=== PATIENT | female | born 1955 | race Caucasian/White ===

== ENCOUNTER 2016-09-04 13:49 | Emergency (ER) | payer OTHER, BC ==
[2016-09-04] MEDS ORDERED: AZITHROMYCIN 250 MG TABLET (FP) PO ONE (14:02)
--- NOTE | 2016-09-04 14:04 | PDOC ---
History of Present Illness - General History Source: Patient Exam Limitations: No Limitations - History of Present Illness Initial Comments: 09/04/16 14:04 A portion of this note was documented by scribe services under my direction. I have reviewed the details of the note, within reason, and agree with the documentation with the following case summary and management plan written by me. Patient treated in the ED. Nursing notes are reviewed and incorporated into the medical decision-making. Vital signs reviewed. Peripheral IV access obtained by the nurse, laboratory studies are drawn and sent, reviewed and interpreted by myself. Vital Signs Temp Pulse Resp BP Pulse Ox 98.2 F 75 15 130/63 97 09/04/16 13:51 09/04/16 13:51 09/04/16 13:51 09/04/16 13:51 09/04/16 13:51 61-year-old female with history of hypertension, recurrent sinusitis with prior complicated abscesses, dental removals as a consequence, frequent sinus infections, presents with right frontal and right maxillofacial sinus pain radiating to right ear. Patient reports that typically requires antibiotics given the severity of her sinusitis. Has had multiple complications including facial cellulitis and facial abscesses. Denies fevers. Reports some mild chills. Given her complicated history with sinusitis, we'll initiate azithromycin and have the patient follow up with her primary care physician. Return precautions given. Patient verbalizes understand agrees with plan I discussed the physical exam findings, ancillary test results and final diagnoses with the patient. I answered all of the patient's questions. The patient was satisfied with the care received and felt comfortable with the discharge plan and treatment plan. The patient will call their primary care physician within 24 hours to arrange follow-up and will return to the Emergency Department with any new, persistant or worsening symptoms. <Kvng Elmore - Last Filed: 09/04/16 14:04> - History of Present Illness Initial Comments: 09/04/16 14:12 The patient is a 61-year-old female with significant past medical history of hypertension, who presents to the emergency depeartment for recurrent sinusitis today. She reports prior complicated abscesses and dental removals as a consequence of her frequent sinus infections and complains of right frontal and right maxillofacial sinus pain radiating to right ear. The patient reports that she typically requires antibiotics. She reports having multiple complications including facial cellulitis and facial abscesses. Denies fevers. Reports some mild chills. She denies chest pain, dizziness, palpitations, and lightheadedness. She denies any other acute complaints. <Leana Larry - Last Filed: 09/04/16 14:18> - General Chief Complaint: Headache Stated Complaint: SINUS PAIN & HEADACHE Time Seen by Provider: 09/04/16 13:53 Past History - Past Medical History Anemia: No Asthma: No Cancer: No Cardiac Disorders: Yes (10 years angina) CVA: No COPD: No CHF: No HTN: Yes Hypercholesterolemia: Yes - Surgical History Orthopedic Surgery: Yes - Psycho/Social/Smoking Cessation Hx Anxiety: No Suicidal Ideation: No Smoking Status: Yes Smoking History: Current every day smoker Have you smoked in the past 12 months: Yes Number of Cigarettes Smoked Daily: 5 'Breaking Loose' booklet given: 03/25/12 Hx Alcohol Use: No Drug/Substance Use Hx: No Substance Use Type: None Hx Substance Use Treatment: No <Kvng Elmore - Last Filed: 09/04/16 14:04> <Leana Larry - Last Filed: 09/04/16 14:18> - Past Medical History Allergies/Adverse Reactions: Allergies Allergy/AdvReac Type Severity Reaction Status Date / Time oxycodone HCl [From Percocet] Allergy Mild Verified 07/25/16 12:04 Home Medications: Ambulatory Orders Amlodipine Besylate [Norvasc] 10 mg PO HS 03/26/12 Aspirin [Aspirin EC] 81 mg PO HS 07/25/16 Docosahexanoic Acid/Epa [Fish Oil Concentrate Softgel] 1 each PO HS 07/25/16 Pravastatin Sodium [Pravachol (Nf)] 20 mg PO HS 07/25/16 Azithromycin 250 mg PO DAILY #4 tablet 09/04/16 Fluticasone Prop 0.05% Nasal [Flonase -] 1 spray IN BID PRN 09/04/16 Guaifen/Phenyleph/Acetaminophn [Tylenol Sinus Severe Caplet] 1 each PO PRN PRN 09/04/16 Review of Systems - Review of Systems Able to Perform ROS?: Yes Comments:: 09/04/16 14:15 GENERAL/CONSTITUTIONAL: No fever or chills. No weakness. HEAD, EYES, EARS, NOSE AND THROAT:(+) sinus congestion with right facial pain radiating to right ear. No change in vision. No ear discharge. No sore throat. CARDIOVASCULAR: No chest pain or shortness of breath. RESPIRATORY: No cough, wheezing, or hemoptysis. GASTROINTESTINAL: No nausea, vomiting, diarrhea or constipation. GENITOURINARY: No dysuria, frequency, or change in urination. MUSCULOSKELETAL: No joint or muscle swelling or pain. No neck or back pain. SKIN: No rash NEUROLOGIC: No headache, vertigo, loss of consciousness, or change in strength/ sensation. ENDOCRINE: No increased thirst. No abnormal weight change. HEMATOLOGIC/LYMPHATIC: No anemia, easy bleeding, or history of blood clots. ALLERGIC/IMMUNOLOGIC: No hives or skin allergy. <Leana Larry - Last Filed: 09/04/16 14:18> *Physical Exam - Vital Signs Last Vital Signs Temp Pulse Resp BP Pulse Ox 98.2 F 75 15 130/63 97 09/04/16 13:51 09/04/16 13:51 09/04/16 13:51 09/04/16 13:51 09/04/16 13:51 - Physical Exam Comments: 09/04/16 14:16 GENERAL: Awake, alert, and fully oriented, in no acute distress HEAD: No signs of trauma EYES: PERRLA, EOMI, sclera anicteric, conjunctiva clear ENT: (+) ttp at right maxilllary and frontal sinuses. Right TM is clear. Auricles normal inspection, hearing grossly normal, nares patent, oropharynx clear without exudates. Moist mucosa NECK: Normal ROM, supple, no lymphadenopathy, JVD, or masses LUNGS: Breath sounds equal, clear to auscultation bilaterally. No wheezes, and no crackles HEART: Regular rate and rhythm, normal S1 and S2, no murmurs, rubs or gallops ABDOMEN: Soft, nontender, normoactive bowel sounds. No guarding, no rebound. No masses EXTREMITIES: Normal range of motion, no edema. No clubbing or cyanosis. No cords, erythema, or tenderness NEUROLOGICAL: Cranial nerves II-XII intact. Normal speech, normal gait. Sensation intact in upper and lower extremities. 5/5 motor strength in upper and lower extremities. No pronator drift. Finger to nose intact. Rapid alternations intact. SKIN: Warm, Dry, normal turgor, no rashes or lesions noted. <Leana Larry - Last Filed: 09/04/16 14:18> ED Treatment Course - Medications Given in the ED: ED Medications Discontinued Medications Generic Name Dose Route Start Last Admin Trade Name Jared PRN Reason Stop Dose Admin Azithromycin 500 mg 09/04/16 14:02 09/04/16 14:08 Zithromax - PO 09/04/16 14:03 500 mg ONCE ONE Administration <Leana Larry - Last Filed: 09/04/16 14:18> *DC/Admit/Observation/Transfer - Discharge Dispostion Admit: No <Kvng Elmore - Last Filed: 09/04/16 14:04> - Attestations Scribe Attestion: 09/04/16 14:18 Documentation prepared by Leana Laryr, acting as medical imaging director for Kvng Elmore MD <Leana Larry - Last Filed: 09/04/16 14:18> Diagnosis at time of Disposition: Sinusitis Qualifiers: Sinusitis location: unspecified location Chronicity: acute Recurrence: not specified as recurrent Qualified Code(s): J01.90 - Acute sinusitis, unspecified - Discharge Dispostion Disposition: HOME Condition at time of disposition: Stable - Prescriptions Prescriptions: Azithromycin 250 mg PO DAILY #4 tablet - Referrals Referrals: Damon Stephesnon MD [Primary Care Provider] - - Patient Instructions Printed Discharge Instructions: Tips to Help You Stop Smoking, DI for Sinusitis Additional Instructions: Please follow up with your doctor. Complete the antibiotics (azithromycin) as prescribed.
[2016-09-04 14:05] VITALS: BP 130/63; PULSE 75; TEMP 98.2; BMI 30.2
[2016-09-04] MEDS ORDERED: AZITHROMYCIN 250 MG TABLET (FP) ONE (14:07)
== END 2016-09-04 14:12 | disposition home or self-care (01) ==
LOC: FER 13:49
DX: J01.90 Acute sinusitis, unspecified (principal); I10 Essential (primary) hypertension; F17.210 Nicotine dependence, cigarettes, uncomplicated; E78.00 Pure hypercholesterolemia, unspecified; I20.9 Angina pectoris, unspecified
CPT/HCPCS: 99281-25

== ENCOUNTER 2016-12-27 09:58 | Emergency (ER) | payer OTHER, BC ==
[2016-12-27 10:04] VITALS: BP 143/71; PULSE 72; TEMP 98.3; BMI 30.5
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
== END 2016-12-27 11:25 | disposition home or self-care (01) ==
LOC: FER 09:58
DX: T21.12XA Burn of first degree of abdominal wall, initial encounter (principal); T59.91XA Toxic effect of unspecified gases, fumes and vapors, accidental (unintentional), initial encounter; Y92.002 Bathroom of unspecified non-institutional (private) residence as the place of occurrence of the external cause; F17.210 Nicotine dependence, cigarettes, uncomplicated; I10 Essential (primary) hypertension
CPT/HCPCS: 99281-25

== ENCOUNTER 2017-04-25 13:22 | Emergency (ER) | payer OTHER, BC ==
[2017-04-25 13:34] VITALS: BP 137/69; PULSE 72; TEMP 98.4; BMI 31.2
--- NOTE | 2017-04-25 13:40 | PDOC ---
History of Present Illness - General History Source: Patient <Tina Gallego Elis - Last Filed: 04/25/17 14:40> - General History Source: Patient (Patient presents with 1 day of sinus pain and congestion. Hx of Sinusitis s/p Full upper teeth removal surgery. ) Exam Limitations: No Limitations - History of Present Illness Timing/Duration: 24 hours Severity: moderate <Lavon Murdock - Last Filed: 04/25/17 15:15> - General Chief Complaint: Cold Symptoms Stated Complaint: SORE THROAT, EAR PAIN, RUNNY EYES Time Seen by Provider: 04/25/17 13:25 Past History - Past Medical History Anemia: No Asthma: No Cancer: No Cardiac Disorders: Yes (10 years angina) CVA: No COPD: No CHF: No HTN: Yes Hypercholesterolemia: Yes - Surgical History Orthopedic Surgery: Yes - Suicide/Smoking/Psychosocial Hx Smoking Status: Yes Smoking History: Current every day smoker Have you smoked in the past 12 months: Yes Number of Cigarettes Smoked Daily: 20 If you are a former smoker, when did you quit?: 12/27/16 Information on smoking cessation initiated: Yes 'Breaking Loose' booklet given: 12/27/16 Hx Alcohol Use: No Drug/Substance Use Hx: No Substance Use Type: None Hx Substance Use Treatment: No <LashondaTina Gillis - Last Filed: 04/25/17 14:40> - Suicide/Smoking/Psychosocial Hx Smoking Status: Yes (Pack per day) Smoking History: Current every day smoker <Lavon Murdock - Last Filed: 04/25/17 15:15> - Past Medical History Allergies/Adverse Reactions: Allergies Allergy/AdvReac Type Severity Reaction Status Date / Time oxycodone HCl [From Percocet] Allergy Mild Verified 12/27/16 09:59 Home Medications: Ambulatory Orders Amlodipine Besylate [Norvasc] 10 mg PO HS 03/26/12 Aspirin [Aspirin EC] 81 mg PO HS 07/25/16 Pravastatin Sodium 10 mg PO HS 12/27/16 Cephalexin Monohydrate [Keflex -] 500 mg PO Q8H #30 capsule 04/25/17 Fluticasone Prop 0.05% Nasal [Flonase -] 1 - 2 spray NS DAILY #1 spray.pump Sulfamethoxazole/Trimethoprim [Bactrim Ds Tablet] 1 each PO BID #14 tablet 04/25 Review of Systems - Review of Systems Constitutional: Yes: Fever HEENTM: Yes: Nose Pain, Nose Congestion Respiratory: Yes: Cough (Dry ) All Other Systems: Reviewed and Negative <Lavon Murdock - Last Filed: 04/25/17 15:15> *Physical Exam - Vital Signs Last Vital Signs Temp Pulse Resp BP Pulse Ox 98.4 F 72 16 137/69 98 04/25/17 13:23 04/25/17 13:23 04/25/17 13:23 04/25/17 13:23 04/25/17 13:23 <Tina Gallego S - Last Filed: 04/25/17 14:40> - Vital Signs Last Vital Signs Temp Pulse Resp BP Pulse Ox 98.4 F 72 16 137/69 98 04/25/17 13:23 12 13:23 04/25/17 13:23 04/25/17 13:23 04/25/17 13:23 - Physical Exam HEENT: positive: Other (Mild Throat erythema. Right sided frontal sinus pain. Right side pain with tapping to right mastoid. ) Neck: positive: Supple <Lavon Murdock - Last Filed: 04/25/17 15:15> ED Treatment Course - ADDITIONAL ORDERS Additional order review: 04/25/17 13:44 Group A Strep Rapid Antigen - Final Throat NEGATIVE FOR THE ANTIGEN OF BETA HEMOLYTIC STREP GROUP A - Medications Given in the ED: ED Medications Discontinued Medications Generic Name Dose Route Start Last Admin Trade Name Freq PRN Reason Stop Dose Admin Cephalexin HCl 500 mg 04/25/17 14:47 04/25/17 14:52 Keflex - PO 04/25/17 14:48 500 mg ONCE ONE Administration Trimethoprim/Sulfamethoxazole 1 each 04/25/17 14:46 04/25/17 14:52 Bactrim Ds - PO 04/25/17 14:47 1 each ONCE ONE Administration <Lavon Murdock - Last Filed: 04/25/17 15:15> *DC/Admit/Observation/Transfer - Discharge Dispostion Admit: No <Tina Gallego S - Last Filed: 04/25/17 14:40> - Attestations Scribe Attestion: 04/25/17 15:13 Documentation prepared by Lavon Murdock, acting as electromedical equipment technician for Tina Gallego MD/DO. <Lavon Murdock - Last Filed: 04/25/17 15:15> Diagnosis at time of Disposition: Sinusitis Qualifiers: Sinusitis location: other Chronicity: unspecified Qualified Code(s): J32.9 - Chronic sinusitis, unspecified - Discharge Dispostion Disposition: HOME Condition at time of disposition: Good - Prescriptions Prescriptions: Cephalexin Monohydrate [Keflex -] 500 mg PO Q8H #30 capsule Fluticasone Prop 0.05% Nasal [Flonase -] 1 - 2 spray NS DAILY #1 spray.pump Sulfamethoxazole/Trimethoprim [Bactrim Ds Tablet] 1 each PO BID #14 tablet - Referrals Referrals: Tam Saenz [Primary Care Provider] - - Patient Instructions Printed Discharge Instructions: DI for Sinusitis, DI for Viral Upper Respiratory Infection -- Adult - Post Discharge Activity
[2017-04-25] MEDS ORDERED: SULFAMETHOXAZOLE/TRIMETHOPRIM 800MG/160MG D.S. TABLET PO ONE (14:46)
[2017-04-25] MEDS ORDERED: CEPHALEXIN MONOHYDRATE 500 MG CAPSULE (UD) PO ONE (14:47)
[2017-04-25] MEDS ORDERED: SULFAMETHOXAZOLE/TRIMETHOPRIM 800MG/160MG D.S. TABLET ONE (14:49)
[2017-04-25] MEDS ORDERED: CEPHALEXIN MONOHYDRATE 500 MG CAPSULE (UD) ONE (14:50)
== END 2017-04-25 14:56 | disposition home or self-care (01) ==
LOC: FER 13:22
DX: J32.9 Chronic sinusitis, unspecified (principal)
CPT/HCPCS: 87070; 87430; 99282-25

== ENCOUNTER → 2018-03-22 | Day surgery (SDC) | payer OTHER ==
--- NOTE | 2018-03-25 12:24 | PATH ---
Surgical Pathology Report Patient Name: JAYANT TERRAZAS [facility]. Rec. #: [id number] /Age/Gender: 1955 (Age: 62) / F Account: [id number] [facility] U Taken: 03/22/2018 Received: 03/22/2018 Reported: 03/25/2018 Physicians: Cora Roth M.D. Specimen(s) Received LEFT BREAST CORE BX 8N1 Clinical History Non-palpable lesion Ultrasound findings: Suspicious Final Diagnosis BREAST, LEFT, 8N1, CORE BIOPSY: SMALL RADIAL SCAR (3 MM) WITH ASSOCIATED FIBROCYSTIC CHANGES INCLUDING CYSTIC APOCRINE METAPLASIA AND USUAL DUCTAL HYPERPLASIA (UDH). Electronically Signed Franchesca Clemente M.D. Gross Description Received in formalin, labeled "left breast 8 N1" are nine cores of yellow-mariscal and light mariscal tissue ranging from 0.4-1.9 cm in length with a diameter of 0.3 cm. Entirely submitted in two cassettes. Time to formalin fixation : < 1 minute Total formalin fixation time: Approximately 6 hours AE/03/22/2018 ebram/03/22/2018
--- NOTE | 2018-03-25 20:38 | OP ---
DATE OF OPERATION: 03/22/2018 PREOPERATIVE DIAGNOSIS: Left breast mass, 8 o'clock, 1 cm from the nipple. POSTOPERATIVE DIAGNOSIS: Left breast mass, 8 o'clock, 1 cm from the nipple. PROCEDURE: Left ultrasound-guided core biopsy with clip placement. ANESTHESIA: Local. ATTENDING SURGEON: Cora Roth MD ESTIMATED BLOOD LOSS: Minimal. COMPLICATIONS: None. PROCEDURE: Patient was made aware of the risks and benefits of the procedure and consented. She was placed in the supine position, and under sterile conditions, with 1% lidocaine for local anesthesia, a small michael was made in the skin. Using a 10-gauge suction biopsy device via a lateral approach under ultrasound guidance, multiple cores were obtained and submitted to Pathology. Likewise under ultrasound guidance, a U-shaped clip was placed into the biopsy region. Well tolerated by patient. Steri-Strip and sterile bandage was applied. Will contact her with the results. CORA ROTH M.D. VERO/[id number]
== END | disposition home or self-care (01) ==
LOC: FRADUS-SUR 10:32
PROVIDERS: ATTEND Surgery Surgical Oncology
PROC: 0HBU3ZX Excision of Left Breast, Percutaneous Approach, Diagnostic (ICD-10-PCS; principal; 2018-03-22)
DX: N60.82 Other benign mammary dysplasias of left breast (principal); N64.89 Other specified disorders of breast; L90.5 Scar conditions and fibrosis of skin; N63.24 Unspecified lump in the left breast, lower inner quadrant
CPT/HCPCS: 19083; 87899; 88305-TC; A4648

== ENCOUNTER 2019-02-21 15:36 | Emergency (ER) | payer OTHER ==
[2019-02-21 15:46] VITALS: BP 138/77; PULSE 82; TEMP 98.1; BMI 31.1
--- NOTE | 2019-02-21 16:01 | PDOC ---
History of Present Illness - General Chief Complaint: Pain Stated Complaint: LEFT JAW, LEFT EAR PAIN Time Seen by Provider: 02/21/19 16:01 - History of Present Illness Initial Comments: 02/21/19 16:20 63 year old woman with a history of sinusitis, htn and hld who presents with 3 days of L parotid gland swelling and some L ear pain and a low grade fever, not recorded. She said she has had tenderness to the lymph particularly at the corner of the L jaw. She has no other complaints aside from a couple seconds of headache this morning Past History - Past Medical History Allergies/Adverse Reactions: Allergies Allergy/AdvReac Type Severity Reaction Status Date / Time oxycodone HCl [From Percocet] Allergy Mild Verified 02/21/19 15:38 Home Medications: Ambulatory Orders Amlodipine Besylate [Norvasc] 10 mg PO HS 03/26/12 Aspirin [Aspirin EC] 81 mg PO HS 07/25/16 Pravastatin Sodium 10 mg PO HS 12/27/16 Amox-Tr/K Cl [Augmentin - 875Mg Tablet] 1 tab PO BID #14 tablet 02/21/19 Ibuprofen [Ibu] 800 mg PO TID #21 tablet 02/21/19 Anemia: No Asthma: No Cancer: No Cardiac Disorders: Yes (10 years angina) CVA: No COPD: No CHF: No HTN: Yes Hypercholesterolemia: Yes - Surgical History Orthopedic Surgery: Yes - Psycho Social/Smoking Cessation Hx Smoking Status: Yes (Pack per day) Smoking History: Current every day smoker Have you smoked in the past 12 months: Yes Number of Cigarettes Smoked Daily: 15 If you are a former smoker, when did you quit?: 12/27/16 Information on smoking cessation initiated: Yes 'Breaking Loose' booklet given: 04/25/17 Hx Alcohol Use: No Drug/Substance Use Hx: No Substance Use Type: None Hx Substance Use Treatment: No *Physical Exam - Vital Signs Last Vital Signs Temp Pulse Resp BP Pulse Ox 98.1 F 82 18 138/77 97 02/21/19 15:36 02/21/19 15:36 02/21/19 15:36 02/21/19 15:36 02/21/19 15:36 Discharge - Discharge Information Problems reviewed: Yes Clinical Impression/Diagnosis: Parotitis Condition: Stable Disposition: HOME - Admission No - Additional Discharge Information Prescriptions: Amox-Tr/K Cl [Augmentin - 875Mg Tablet] 1 tab PO BID #14 tablet Ibuprofen [Ibu] 800 mg PO TID #21 tablet - Follow up/Referral - Patient Discharge Instructions Patient Printed Discharge Instructions: DI for Parotitis-Adult Additional Instructions: You were seen in the ED for complaints of parotid gland swelling and ear pain In the ED you were evaluated There does not appear to be an acute need for immediate hospitalization. You are advised to follow up with your Primary Care Physician within 1 week. You were given a prescription for antibiotics, pain medication and are advised to eat sour foods. Return to the ED immediately if you experience worsening swelling, pain in the jaw or ear, fevers or any other concerning symptoms. - Post Discharge Activity
--- NOTE | 2019-02-21 16:11 | PDOC ---
Attending Attestation - Resident Resident Name: Eileen Man - HPI HPI: 02/21/19 16:43 Pt presents to the ED complaining of a three day history of painful swelling behind her left jaw. Also complains of left ear pain and low grade fever. Denies other complaints. - Physicial Exam PE: 02/21/19 17:09 Agree with resident exam. + tenderness over the parotid gland. + redness of the TM without purlence or bulging. - Medical Decision Making 02/21/19 17:10 pt presents to the Ed complaining of pain behind her ear. + tender, swollen parotid gland and red TM. Possible early otitis--will treat with antibiotics. will treat possible parotitis with silalogogs, nsaids and warm compresses.
== END 2019-02-21 16:40 | disposition home or self-care (01) ==
LOC: FER 15:36
DX: K11.20 Sialoadenitis, unspecified (principal); I10 Essential (primary) hypertension; E78.5 Hyperlipidemia, unspecified; F17.210 Nicotine dependence, cigarettes, uncomplicated; Z79.82 Long term (current) use of aspirin
CPT/HCPCS: 99283-25

== ENCOUNTER 2023-01-09 10:54 | Emergency (ER) | payer OTHER ==
[2023-01-09 11:10] VITALS: BP 148/99; PULSE 80; RESP 16; TEMP 98.3; BMI 31.1
[2023-01-09] MEDS ORDERED: ACETAMINOPHEN 325 MG TABLET (FP) PO ONE (11:16)
== END 2023-01-09 12:45 | disposition home or self-care (01) ==
LOC: FER 10:54
DX: M25.531 Pain in right wrist (principal); R22.31 Localized swelling, mass and lump, right upper limb; M65.131 Other infective (teno)synovitis, right wrist
CPT/HCPCS: 36415; 73110-TC-RT-FY; 73130-TC-RT-FY; 86618; 99284-25